=== PATIENT | male | born 2000 | race Asian ===

== ENCOUNTER 2022-05-02 18:03 | Emergency (ER) | payer OTHER, SELFPAY ==
--- NOTE | ~2022-05-02 | XR_ITS ---
XR chest 2V DATE: 05/02/2022 19:21 INDICATION: Cough, chest pain TECHNIQUE: 2 views COMPARISON: None FINDINGS: Normal heart size. No hilar or mediastinal enlargement. No pulmonary infiltrate or consolid ation, pleural effusion or pulmonary vascular congestion or pneumothorax. Included skeletal structure s are unremarkable. There is minimal levoscoliosis of the thoracic spine. IMPRESSION: No active cardiopulmonary disease Reviewed, dictated and finalized at location A.
--- NOTE | 2022-05-02 18:27 | ED.URI ---
HPI - URI/Sore Throat General Chief Complaint: Upper Respiratory Infection Stated Complaint: Chest Pain, Cough, Fatique Time Seen by Provider: 05/02/22 18:55 Source: patient and RN notes reviewed Mode of arrival: ambulatory Limitations: no limitations History of Present Illness HPI Narrative: 22-year-old male presents with concern for 2 week history of cough, fatigue, chest pain with coughing, occasional shortness of breath. Reports history of pneumonia. Reports he spent using [employer], was seen about a week ago and was given prescription strength cough medicine. He reports cough medicine helps his cough briefly, however his symptoms seem to be worsening. MD elicited complaint: cough Related Data Home Medications Medication Instructions Recorded Confirmed benzonatate 100 mg capsule 100 mg PO TID PRN Cough 05/02/22 05/02/22 promethazine-DM 6.25 mg-15 mg/5 mL 5 ml PO Q8-10H PRN Cough 05/02/22 05/02/22 oral syrup Allergies Allergy/AdvReac Type Severity Reaction Status Date / Time No Known Allergies Allergy Verified 05/02/22 18:46 sea food Allergy Severe rash Uncoded 05/02/22 18:46 Review of Systems Review of Systems: CONSTITUTIONAL: Reports malaise, but she. Denies chills, sweats, or fever. EYES: Denies visual changes, redness, or discharge. ENT: Reports rhinorrhea, congestion parents sinus pain, otalgia and sore throat. CARDIOVASCULAR: Denies chest pain, palpitations, or edema. RESPIRATORY: Reports cough, chest congestion, chest pain with coughing, dyspnea. GASTROINTESTINAL: Denies abdominal pain, nausea, vomiting, diarrhea SKIN: Denies rash or itching. MUSCULOSKELETAL: Denies myalgia. NEUROLOGIC: Denies headache. All systems reviewed & are unremarkable except as noted in HPI and below PMFSH Social History Social History (Updated 02/25/20 @ 10:06 by Wilda Kaye MA) Smoking status: Never smoker Alcohol intake: never Substance use: never Comments At time of signature, agree with nursing past medical, surgical, social and family history. There is no relevant family history pertinent to the presenting complaint Exam Narrative: GENERAL: Nontoxic-appearing and in no acute distress. HEAD: Normocephalic EYES: PERRLA, conjunctivae clear ENT: Nares clear, clear discharge. Mucous membranes moist. TM pearly oneill with dull light reflex bilaterally; no tragal tenderness. Oropharynx not erythematous without lesions. Tonsils not enlarged and without exudate, no drooling, no hoarseness, no trismus, uvula midline. NECK: Supple. No lymphadenopathy CHEST: Clear to auscultation, breath sounds diminished in the right upper lung. No wheezing, rhonchi, rales, or stridor. No respiratory distress, speaks in full sentences. HEART: Regular rate and rhythm. No murmur heard. SKIN: Warm, dry, no rash. NEURO: Alert and oriented x3. PSYCH: Normal mood and affect Course Course Emergency Course: Patient is aware of diagnosis, understands and agrees to treatment plan. Anticipatory guidance given. Patient agrees to follow-up as directed and is aware of reasons to seek care at the emergency department. Portions of this record may have been created with voice recognition software Level of Care: Express Care Visit Vital Signs Vital signs: Reviewed. MDM - URI/Sore Throat MDM Narrative Medical decision making narrative: Differential diagnosis considered: Harp virus, strep pharyngitis, allergic rhinitis, upper respiratory tract infection, sinusitis, rhinosinusitis, nasopharyngitis. viral pharyngitis, otitis media, otitis externa, pneumonia, bronchitis, viral cough syndrome, viral syndrome, and influenza. Exam findings show no acute concerns or changes; patient is non-toxic appearing and is in no distress. Patient is appropriate for outpatient treatment and follow-up. Lab Data Attestation: I reviewed the patient's lab results. Imaging Data My impression: Images reviewed, interpreted by radiologist, agree, see report. R
[2022-05-02 18:31] VITALS: BP 135/66; PULSE 73; RESP 16; TEMP 36.3; O2SAT 100
== END 2022-05-02 19:54 | disposition home or self-care (01) ==
PROVIDERS: Emergency Provider Nurse Practitioner
DX: J40 Bronchitis, not specified as acute or chronic (principal)
CPT/HCPCS: 71046; 99213; G0463

== ENCOUNTER 2022-05-11 16:24 | Emergency (ER) | payer OTHER, SELFPAY ==
[2022-05-11 16:35] VITALS: BP 112/72; PULSE 78; RESP 16; TEMP 36.7; O2SAT 98
--- NOTE | 2022-05-11 18:03 | ED.GENADULT ---
HPI - General Adult General Chief complaint: Chest Pain Stated complaint: cp Time Seen by Provider: 05/11/22 17:53 Source: patient Mode of arrival: ambulatory Limitations: no limitations History of Present Illness HPI narrative: Patient presents today complaining of chest wall pain to the sternal area and also to the bilateral lateral chest. States he does have some pain constantly but the area moves around. Was diagnosed with bronchitis last week and given a prescription for doxycycline and a Medrol Dosepak, which he has finished. States his cough has improved. Currently rates his pain 5/10 and has not tried any [id number] medication for his pain prior to arrival. Related Data Home Medications Medication Instructions Recorded Confirmed benzonatate 100 mg capsule 100 mg PO TID PRN Cough 05/02/22 05/02/22 promethazine-DM 6.25 mg-15 mg/5 mL 5 ml PO Q8-10H PRN Cough 05/02/22 05/02/22 oral syrup Allergies Allergy/AdvReac Type Severity Reaction Status Date / Time No Known Allergies Allergy Verified 05/02/22 18:46 sea food Allergy Severe rash Uncoded 05/02/22 18:46 Review of Systems Review of Systems: CONSTITUTIONAL: Denies body aches, fever, chills, or sweats. EYES: Denies visual changes, redness, or discharge. ENT: Denies rhinorrhea, congestion, sore throat, or otalgia. CARDIOVASCULAR: Denies chest pain, palpitations, or edema. RESPIRATORY: Denies cough or dyspnea.+ Chest wall pain GASTROINTESTINAL: Denies abdominal pain, nausea, vomiting, or diarrhea. GENITOURINARY: Denies dysuria or hematuria. SKIN: Denies rash, itching, or wounds. MUSCULOSKELETAL: Denies back pain, joint pain, or myalgia. NEUROLOGIC: Denies headache, numbness, tingling, or weakness. PSYCH: Denies depression or anxiety. [facility] Social History Social History Smoking status: Never smoker Alcohol intake: never Substance use: never Comments At time of signature, I have reviewed and agree with nursing past medical, surgical, social and family history unless otherwise noted. Please see nursing chart for further information. There is no relevant family history pertinent to the presenting complaint Exam Narrative: GENERAL: Well-appearing, well-nourished, and in no acute distress. HEAD: Normocephalic, atraumatic. EYES: EOMI. No redness or drainage. Conjunctivae normal. ENT: Mucous membranes pink and moist. NECK: Normal AROM. Supple. No lymphadenopathy. CHEST: No respiratory distress. Clear to auscultation. bilateral sternal border tenderness. Pain in this area as well with deep breaths. HEART: Regular rate and rhythm. No murmur appreciated. Normal peripheral pulses. EXTREMITIES: Normal range of motion. No edema. SKIN: Warm, dry, no rash. Capillary refill normal. Normal skin turgor. NEURO: No focal deficits. Alert and oriented x3. Gait steady. PSYCH: Normal affect. No signs of depression or anxiety. Course Course Level of Care: Express Care Visit Vital Signs Vital signs: Vital Signs Temperature 98.0 F 05/11/22 16:35 Pulse Rate 78 05/11/22 16:35 Respiratory Rate 16 05/11/22 16:35 Blood Pressure 112/72 05/11/22 16:35 Pulse Oximetry 98 05/11/22 16:35 Oxygen Delivery Room Air 05/11/22 16:35 Temperature 98.0 F 05/11/22 16:35 Pulse Rate 78 05/11/22 16:35 Respiratory Rate 16 05/11/22 16:35 Blood Pressure 112/72 05/11/22 16:35 Pulse Oximetry 98 05/11/22 16:35 Oxygen Delivery Room Air 05/11/22 16:35 Reviewed Medical Decision Making Differential Diagnosis Differential Diagnosis: chest wall pain, costochondritis, pleurisy, pneumonia Vital Signs Vital Signs: Vital Signs Temperature 98.0 F 05/11/22 16:35 Pulse Rate 78 05/11/22 16:35 Respiratory Rate 16 05/11/22 16:35 Blood Pressure 112/72 05/11/22 16:35 Pulse Oximetry 98 05/11/22 16:35 Oxygen Delivery Room Air 05/11/22 16:35 Temp
== END 2022-05-11 18:15 | disposition home or self-care (01) ==
PROVIDERS: Emergency Provider Nurse Practitioner
DX: M94.0 Chondrocostal junction syndrome [Tietze] (principal)
CPT/HCPCS: 99211; G0463